=== PATIENT | female | born 1955 | race Caucasian/White ===

== ENCOUNTER 2022-12-15 10:53 | Day surgery (SDC) | payer MEDICARE ==
[~2022-12-15] VITALS: Ht 165.1 cm; Wt 98.8 kg
[2022-12-15] MEDS ORDERED: LISI20 PO (11:50)
[2022-12-15] MEDS ORDERED: OXYCODONE-ACET1 EAC3 PO (11:51)
[2022-12-15] MEDS ORDERED: CYMBALTA30 M2 PO (11:51)
[2022-12-15] MEDS ORDERED: Neurontin800 MG (11:51)
--- NOTE | 2022-12-15 12:00 | NUR ---
12/15/22 Maribell Oshea PT REPORTS MASTECTOMY RIGHT SIDE WITH LYMPHNODE REMOVAL X25; REPORTS NO BP/ IV ON RT SIDE. CURRENLY NO SWELLING REPORTED BY PT IN THE AREA. JORDI GATICA SPOKE WITH OR NURSES; WE WILL USE THE CUFF AND IV ON RT SIDE THERE IS NO CONCERNS AT THIS TIME. CHARGE NURSE REYNALDO AGREES.
[2022-12-15 12:54] VITALS: BP 148/95
== END 2022-12-15 13:23 | disposition home or self-care (01) ==
LOC: ORSCSDS 10:53
PROVIDERS: Orthopaedic Surgery
PROC: 01N54ZZ Release Median Nerve, Percutaneous Endoscopic Approach (ICD-10-PCS; principal; 2022-12-15 12:30)
DX: G56.02 Carpal tunnel syndrome, left upper limb (principal); I10 Essential (primary) hypertension; Z87.891 Personal history of nicotine dependence; Z79.899 Other long term (current) drug therapy
CPT/HCPCS: J2250; J7120